=== PATIENT | female | born 1960 | race African-American/Black ===

== ENCOUNTER 2016-09-21 08:12 | Inpatient (IN) | payer OTHER ==
[~2016-09-21] VITALS: Ht 170.2 cm; Wt 84.5 kg
[~2016-09-21 08:12] MED LIST: CEFEPIME HCL2 GM IM; CEFEPIME-D2 GM/50 ML IV; CIPRO500 MG PO; CLARITIN10 MG PO; DILAUDID2 MG PO; DULCOLAX10 MG PR; ENDOCET 5-3251 EACH PO; ERGOCALCIF50000 UNIT PO; FLEET ENEMA-AD118 ML PR; FLEXERIL10 MG PO; GABAPENTIN300 MG PO; GLUCOPHAGE500 MG PO; HEPARIN SO5000 UNITS SC; KEFLEX500 MG PO; LASIX20 MG PO; LOVENOX40 MG/0.4 SC; METFORMIN HCL1000 MG PO; METFORMIN HCL500 MG PO; MILK OF MAGN PO; MOBIC7.5 MG PO; MUPIROCIN22 GM TP; NEURONTIN300 MG PO; OMEPRAZOLE40 M1 PO; OXYCODONE HCL E20 MG PO; OXYCODONE HCL5 MG PO; OXYCONTIN10 MG PO; OXYCONTIN20 MG PO; PRILOSEC40 MG PO; PYRIDIUM200 MG PO; ROXICODONE5 MG PO; SKELAXIN800 MG PO; ULTRAM50 MG PO; VENTOLIN HFA18 GM IH; XARELTO10 MG PO; ZITHROMAX Z-PA250 MG PO; vit b6
[2016-09-21 09:06] LABS: BASOPHIL COUNT 0.1 K/uL (0-0.1); EOSINOPHIL (%) 1.5 % (0-5); EOSINOPHIL COUNT 0.2 K/uL (0-0.3); HEMATOCRIT 49.4 % (36.0-46.0); IMMATURE GRANULOCYTE (%) 0.4 % (0.0-0.7); INSTRUMENT ABS NEUTROPHIL CT 6.9 K/uL; LYMPHOCYTE COUNT 2.5 K/uL (1.0-2.8); MCH 25.4 PG (29.0-34.0); MCHC 31.4 G/DL (30.0-36.0); MEAN PLAT.VOLUME 11.1 uM^3 (9.5-12.4); MONOCYTE (%) 6.2 % (3-12); MONOCYTE COUNT 0.6 K/uL (0-0.8); NEUTROPHIL (%) 66.6 % (45-76); NEUTROPHIL COUNT 6.9 K/uL (1.8-6.4); PLATELET COUNT 285 K/uL (156-360); RBC DIS.WIDTH-CV 15.9 % (11.8-14.6); RBC DIS.WIDTH-SD 45.5 % (39-53); WHITE BLOOD COUNT 10.4 K/uL (4.1-10.2)
[2016-09-21 09:18] LABS: CHLORIDE 104 mEq/L (99-109); POTASSIUM 3.3 mEq/L (3.7-5.4); SODIUM 140 mEq/L (136-147)
[2016-09-21 09:20] LABS: GLUCOSE 119 mg/dL (70-99)
[2016-09-21 09:21] LABS: ANION GAP 12 MEQ/L (2-14)
[2016-09-21 09:23] LABS: SERUM ETHYL ALCOHOL < 10 mg/dL
[2016-09-21 09:24] LABS: GFR ESTIMATE (CALCULATED) > 59 mL/min/
[2016-09-21 09:25] LABS: UREA NITROGEN (BUN) 17 mg/dL (9-23)
[2016-09-21 11:02] LABS: ADD MIUA? NO; BILIRUBIN NEGATIVE; BLOOD NEGATIVE; COLOR AMBER ((YELLOW)); GLUCOSE (STRIP) NEGATIVE; KETONES 5; LEUKOCYTES NEGATIVE; NITRITE NEGATIVE; PROTEIN (STRIP) 30; SPECIFIC GRAVITY 1.031 (1.000-1.030)
[2016-09-21 11:12] LABS: AMPHETAMINE NEGATIVE (500 ng/mL); BENZODIAZEPINES NEGATIVE (150 ng/mL); COCAINE PRESUMPTIVE POSITIVE (150 ng/mL); METHAMPHETAMINE NEGATIVE (500 ng/mL); OPIATES (MORPHINE) NEGATIVE (100 ng/mL); PHENCYCLIDINE NEGATIVE (25 ng/mL); THC CANNABINOIDS NEGATIVE (50 ng/mL); TRICYCLIC ANTIDEPRESSANTS NEGATIVE (300 ng/mL)
[2016-09-21 11:13] LABS: ADD MEDTOX COMMENT Y; BARBITURATES NEGATIVE (200 ng/mL); INTERNAL CONTROLS VALID? YES; METHADONE PRESUMPTIVE POSITIVE (200 ng/mL); OXYCODONE NEGATIVE (100 ng/mL); PROPOXYPHENE NEGATIVE (300 ng/mL)
[2016-09-21 12:34] VITALS: BP 129/82
[2016-09-21 12:39] VITALS: BP 129/82
[2016-09-21 16:12] VITALS: BP 120/71
[2016-09-22 08:02] VITALS: BP 139/68
[2016-09-22 15:27] VITALS: BP 113/63
[2016-09-23 08:22] VITALS: BP 99/58
[2016-09-23 15:20] VITALS: BP 121/71
[2016-09-24 09:32] VITALS: BP 102/57
[2016-09-24 15:55] VITALS: BP 111/59
[2016-09-25 08:02] VITALS: BP 96/65
[2016-09-25 10:28] VITALS: BP 115/56
[2016-09-25 15:24] VITALS: BP 116/57
[2016-09-26 08:06] VITALS: BP 87/48
[2016-09-26 11:45] VITALS: BP 110/73
[2016-09-26 15:34] VITALS: BP 114/65
[2016-09-27 07:41] VITALS: BP 105/61
[2016-09-27 16:03] VITALS: BP 133/74
[2016-09-28 07:54] VITALS: BP 123/68
[2016-09-28 15:38] VITALS: BP 121/65
[2016-09-29 07:26] VITALS: BP 126/59
[2016-09-29 15:33] VITALS: BP 128/66
[2016-09-30 02:04] VITALS: BP 140/96
[2016-09-30 07:49] VITALS: BP 123/65
[2016-09-30 15:52] VITALS: BP 119/70
[2016-10-01 07:58] VITALS: BP 117/67
[2016-10-01 15:42] VITALS: BP 84/49
[2016-10-02 07:44] VITALS: BP 91/54
[2016-10-02 15:25] VITALS: BP 119/66
[2016-10-03 07:47] VITALS: BP 144/81
[2016-10-03 11:50] VITALS: BP 144/83
[2016-10-03 15:29] VITALS: BP 103/59
[2016-10-04 07:53] VITALS: BP 132/87
[2016-10-04 15:23] VITALS: BP 139/86
[2016-10-05 08:00] VITALS: BP 101/57
[2016-10-05] MEDS ORDERED: GABAPENTIN100 MG PO (09:19)
[2016-10-05] MEDS ORDERED: EFFEXOR37.5 MG PO (09:19)
== END 2016-10-05 11:34 | disposition other institution (70) | DRG 885 ==
LOC: EME 08:12 → 1WEST 10:26 → EDOF 10:26 → 1WEST 12:28
PROVIDERS: Emergency Medicine
DX: F33.3 Major depressive disorder, recurrent, severe with psychotic symptoms (principal); R45.851 Suicidal ideations; F14.20 Cocaine dependence, uncomplicated; F11.20 Opioid dependence, uncomplicated; Z88.6 Allergy status to analgesic agent; G89.29 Other chronic pain; Z88.0 Allergy status to penicillin; Z88.8 Allergy status to other drugs, medicaments and biological substances
CPT/HCPCS: 71020; 80048; 81003; 84999; 85025; 90839; 97150 GO; 97166 GO; 99281; 99285; G0480; J2550; Q0177